=== PATIENT | female | born 1980 | race Caucasian/White ===

== ENCOUNTER 2018-07-14 11:11 | Emergency (ER) | END 2018-07-14 12:50 | disposition home or self-care (01) ==

== ENCOUNTER 2018-07-20 10:44 | Emergency (ER) | END 2018-07-20 11:30 | disposition home or self-care (01) ==

== ENCOUNTER 2018-08-06 12:38 | Emergency (ER) | END 2018-08-06 15:26 | disposition left against medical advice (07) ==